=== PATIENT | male | born 1945 | race Hispanic/Latino ===

== ENCOUNTER 2017-10-16 08:54 | Day surgery (SDC) | payer MEDICARE ==
[2017-10-09 14:09] VITALS: BMI 28.9
[2017-10-16] MEDS ORDERED: Propofol 10 mg/ml Inj (20 ML) ONE ×2 (11:33→12:19)
[2017-10-16] MEDS ORDERED: Lidocaine 1% Inj (20ml) ONE (11:35)
[2017-10-16] MEDS ORDERED: Sodium Chloride 0.9% 1,000 ML IV SCH (12:45)
[2017-10-16 14:33] VITALS: BP 131/73; PULSE 65; RESP 14; TEMP 97; O2SAT 97
== END 2017-10-16 14:20 | disposition home or self-care (01) ==
LOC: ENDO 08:54
PROVIDERS: ATTEND Internal Medicine Gastroenterology
DX: K25.9 Gastric ulcer, unspecified as acute or chronic, without hemorrhage or perforation (principal); Z12.11 Encounter for screening for malignant neoplasm of colon; D12.3 Benign neoplasm of transverse colon; K31.9 Disease of stomach and duodenum, unspecified; K57.30 Diverticulosis of large intestine without perforation or abscess without bleeding; K29.50 Unspecified chronic gastritis without bleeding; B96.81 Helicobacter pylori [H. pylori] as the cause of diseases classified elsewhere; K64.8 Other hemorrhoids; Z86.010 Personal history of colon polyps
CPT/HCPCS: 43239; 45380; 45381; 88305; 88342; J2704; J7040 ×2

== ENCOUNTER 2018-02-05 07:57 | Day surgery (SDC) | payer MEDICARE ==
[2018-01-30 14:01] VITALS: BMI 28.8
[2018-02-05] MEDS ORDERED: Sodium Chloride 0.9% 1,000 ML IV SCH (09:15)
[2018-02-05] MEDS ORDERED: Propofol 10 mg/ml Inj (20 ML) ONE (09:54)
[2018-02-05 11:42] VITALS: BP 130/77; PULSE 58; RESP 16; TEMP 97.7; O2SAT 98
== END 2018-02-05 11:32 | disposition home or self-care (01) ==
LOC: ENDO 07:57
PROVIDERS: ATTEND Internal Medicine Gastroenterology
DX: K29.50 Unspecified chronic gastritis without bleeding (principal); K21.9 Gastro-esophageal reflux disease without esophagitis; K25.9 Gastric ulcer, unspecified as acute or chronic, without hemorrhage or perforation; I10 Essential (primary) hypertension; E78.00 Pure hypercholesterolemia, unspecified; E78.5 Hyperlipidemia, unspecified; Z86.010 Personal history of colon polyps; Z85.828 Personal history of other malignant neoplasm of skin
CPT/HCPCS: 43239; 88305; 88342; J2001; J2704; J7030; J7040

== ENCOUNTER 2018-04-27 16:47 | Observation (INO) | payer MEDICARE, OTHER ==
--- NOTE | 2018-04-27 17:39 | ED PDOC ---
Arrival/HPI - General Time Seen by Provider: 04/27/18 17:26 Historian: Patient - History of Present Illness Narrative History of Present Illness (Text): 04/27/18 17:36 72 year old male, whose past medical history includes hypertension and hyperlipidemia, who presents to the Emergency department complaining of a headache and near syncope x 2 days. Patient states this afternoon, he was watching tv and when he got up he felt like he was going to pass out. Patient describes headache as pressure like. Patient denies any fevers, chills, chest pain, shortness of breath, abdominal pain, nausea, vomiting, diarrhea, back pain, neck pain, or any other complaint. PMD: Dr. Villavicencio Time/Duration: < week (2 days) Symptom Onset: Gradual Symptom Course: Unchanged Activities at Onset: Light Context: Home Past Medical History - Provider Review Nursing Documentation Reviewed: Yes - Cardiac Hx Pacemaker: No - Neurological Hx Paralysis: No - Hematological/Oncological Hx Blood Transfusions: No Hx Blood Transfusion Reaction: No - Musculoskeletal/Rheumatological Hx Musculoskeletal Disorders: No - Psychiatric Hx Emotional Abuse: No Hx Physical Abuse: No Hx Substance Use: No - Anesthesia Hx Anesthesia Reactions: No Hx Malignant Hyperthermia: No - Suicidal Assessment Feels Threatened In Home Enviroment: No Family/Social History - Physician Review Nursing Documentation Reviewed: Yes Family/Social History: Unknown Family HX Hx Alcohol Use: Yes (ON OCCASION) Hx Substance Use: No Allergies/Home Meds Allergies/Adverse Reactions: Allergies No Known Allergies Allergy (Verified 01/30/18 14:01) DOESN'T REMEMBER Home Medications: Home Meds Medication Instructions Recorded Confirmed Atorvastatin [Lipitor] 10 mg PO DAILY 10/09/17 02/05/18 amLODIPine [Norvasc] 5 mg PO QAM 10/09/17 02/05/18 Cholecalciferol (Vitamin D3) 1,000 unit PO DAILY 02/05/18 02/05/18 [Vitamin D3] Ranitidine HCl [Zantac] 150 mg PO BID 02/05/18 02/05/18 Review of Systems - Physician Review All systems were reviewed & negative as marked: Yes - Review of Systems Constitutional: Normal Eyes: Normal ENT: Normal Respiratory: Normal. absent: SOB, Cough Cardiovascular: Normal. absent: Chest Pain Gastrointestinal: Normal. absent: Abdominal Pain Genitourinary Male: Normal. absent: Dysuria, Frequency, Hematuria Musculoskeletal: Normal. absent: Back Pain, Neck Pain Skin: Normal. absent: Rash Neurological: Headache, Dizziness, Other (near syncope) Endocrine: Normal Hemo/Lymphatic: Normal Psychiatric: Normal Physical Exam Vital Signs Reviewed: Yes Vital Signs Temp Pulse Resp BP Pulse Ox 04/27/18 17:34 97.9 F 79 18 150/79 100 Temperature: Afebrile Blood Pressure: Normal Pulse: Regular Respiratory Rate: Normal Appearance: Positive for: Well-Appearing, Non-Toxic, Comfortable Pain Distress: None Mental Status: Positive for: Alert and Oriented X 3 - Systems Exam Head: Present: Atraumatic, Normocephalic Pupils: Present: PERRL Extroacular Muscles: Present: EOMI Conjunctiva: Present: Normal Mouth: Present: Moist Mucous Membranes Neck: Present: Normal Range of Motion Respiratory/Chest: Present: Clear to Auscultation, Good Air Exchange. No: Respiratory Distress, Accessory Muscle Use Cardiovascular: Present: Regular Rate and Rhythm, Normal S1, S2. No: Murmurs Abdomen: No: Tenderness, Distention, Peritoneal Signs Back: Present: Normal Inspection Upper Extremity: Present: Normal Inspection. No: Cyanosis, Edema Lower Extremity: Present: Normal Inspection. No: Edema Neurological: Present: GCS=15, CN II-XII Intact, Speech Normal, Motor Func Grossly Intact, Normal Sensory Function, Normal Cerebellar Funct, Normal 2Pt Descrimination. No: Gait Normal (off-balance when he stands due to lightheadedness) Skin: Present: Warm, Dry, Normal Color. No: Rashes Psychiatric: Present: Alert, Oriented x 3, Normal Insight, Normal Concentration Medical Decision Making ED Course and Treatment: 04/27/18 17:39 Impression: 72 year old male presents to the emergency department complaining of headache and near syncope due to hypertensive urgency vs cardiac. Plan: -- CT Head -- EKG -- Cardiac ISO -- Labs -- Chest X-ray -- Tylenol -- Reglan -- UA -- Reassess and disposition Progress Notes: 04/27/18 18:03 EKG reviewed, shows NSR at 66 bpm. Left axis deviation. Right bundle branch block. 04/27/18 19:[address] Head pending. Signed out to Dr. Allison to f/u CT, reevaluation and disposition. NIHSS Scale ([place]) Time Performed: 17:26 - How Severe is the [place] Baseline Level of Consciousness: 0=Alert LOC to Questions: 0=Both comments correct LOC to commands: 0=Obeys both correctly Best Gaze: 0=Normal Visual: 0=No visual loss Facial: 0=Normal Motor Arm - Left: 0=No drift Motor Arm - Right: 0=No drift Motor Leg - Left: 0=No drift Motor Leg - Right: 0=No drift Limb Ataxia: 0=Absent Sensory: 0=Normal Best Language: 0=No aphasia Dysarthia: 0=Normal articulation Extinction & Inattention (Neglect): 0=Normal, no object Score: 0 Risk Level: No Stroke Risk rTPA Inclusion/Exclusion - Refusal of Treatment Patient Refused Treatment: No - Inclusion Criteria for Altepase Patient is 18 years or Older: Yes The Clinical Diagnosis of Ischemic Stroke That is Causing a Potentially Disabling Neurological Deficit: No Time of Onset is Well Established to be Less Than 270 Minute Before Treatment Would Begin: No Risk/Benefit Discussed With Patient/Family Member Present: No - Scribe Statement The provider has reviewed the documentation as recorded by the Scribe Kami Malave All medical record entries made by the Scribe were at my direction and personally dictated by me. I have reviewed the chart and agree that the record accurately reflects my personal performance of the history, physical exam, medical decision making, and the department course for this patient. I have also personally directed, reviewed, and agree with the discharge instructions and disposition. Disposition/Present on Arrival - Present on Arrival Any Indicators Present on Arrival: No - Disposition Have Diagnosis and Disposition been Completed?: No Diagnosis: Near syncope, Headache Disposition Time: 19:55 Condition: FAIR
[2018-04-27 19:25] LABS: BASO # 0.01 K/mm3 (0.0-2.0); BASO % 0.1 % (0.0-3.0); EOS # 0.1 (0.0-0.7); EOS % 1.6 % (1.5-5.0); GRAN # 6.19 (1.4-6.5); GRAN % 78.5 % (50.0-68.0); HEMOGLOBIN 14.7 g/dL (14.0-18.0); LYMPH % 12.7 % (22.0-35.0); MEAN CELL VOLUME 86.5 fl (80.0-105.0); MEAN CORPUSCULAR HEMOGLOBIN 29.1 pg (25.0-35.0); MEAN CORPUSCULAR HGB CONC 33.6 g/dl (31.0-37.0); MEAN PLATELET VOLUME 9.5 fl (7.0-11.0); MONO # 0.6 (0.1-0.6); MONO % 7.1 % (1.0-6.0); RBC 5.05 10^6/uL (3.5-6.1); RED CELL DISTRIBUTION WIDTH 13.3 % (11.5-14.5); WHITE BLOOD COUNT 7.9 10^3/ul (4.5-11.0)
[2018-04-27 19:43] LABS: PH,URINE 6.5 (4.7-8.0); URINE BILIRUBIN NEGATIVE (NEGATIVE); URINE BLOOD NEGATIVE (NEGATIVE); URINE GLUCOSE (UA) NEGATIVE (NEGATIVE); URINE LEUKOCYTE ESTERASE TRACE Leu/uL (NEGATIVE); URINE PROTEIN NEGATIVE mg/dL (<30 mg/dL)
[2018-04-27 19:48] LABS: URINE APPEARANCE CLEAR (CLEAR); URINE COLOR YELLOW (YELLOW)
[2018-04-27 20:01] LABS: URINE BACTERIA MOD (NEG); URINE EPITHELIAL CELLS 0 - 2 /hpf (0-5); URINE RBC 0 - 2 /hpf (0-2)
--- NOTE | 2018-04-27 20:22 | ED PDOC ---
Physical Exam Vital Signs Reviewed: Yes Vital Signs Temp Pulse Resp BP Pulse Ox 04/27/18 18:59 84 18 148/87 99 04/27/18 17:34 97.9 F 79 18 150/79 100 Temperature: Afebrile Blood Pressure: Normal Pulse: Regular Respiratory Rate: Normal Appearance: Positive for: Well-Appearing, Non-Toxic, Comfortable Pain Distress: None Mental Status: Positive for: Alert and Oriented X 3 - Systems Exam Head: Present: Atraumatic, Normocephalic Pupils: Present: PERRL Extroacular Muscles: Present: EOMI Conjunctiva: Present: Normal Mouth: Present: Moist Mucous Membranes Neck: Present: Normal Range of Motion Respiratory/Chest: Present: Clear to Auscultation, Good Air Exchange. No: Respiratory Distress, Accessory Muscle Use Cardiovascular: Present: Regular Rate and Rhythm, Normal S1, S2. No: Murmurs Abdomen: No: Tenderness, Distention, Peritoneal Signs Back: Present: Normal Inspection Upper Extremity: Present: Normal Inspection. No: Cyanosis, Edema Lower Extremity: Present: Normal Inspection. No: Edema Neurological: Present: GCS=15, CN II-XII Intact, Speech Normal Skin: Present: Warm, Dry, Normal Color. No: Rashes Psychiatric: Present: Alert, Oriented x 3, Normal Insight, Normal Concentration Medical Decision Making ED Course and Treatment: 04/27/18 20:22 Pt signed out to me by Dr. Garcia to f/u CT, reevaluation and disposition.Patient presented with c/o headache,dizziness,near syncopal events. EXAM: CT Head w/o Contrast SINGED ON: 04/27/18 10:10 BY: Markell Osullivan M.D. IMPRESSION: No acute intracanal abnormality 04/27/18 22:[address] Keating who is aware and agrees with the plan. Accepts patient to his service. Patient to be admitted to Telemetry for syncope. Re quests Dr. Pat and Dr. Gallardo for consult. - Lab Interpretations Lab Results: 04/27/18 19:11 Lab Results 04/27/18 19:11: WBC 7.9, RBC 5.05, Hgb 14.7, Hct 43.7, MCV 86.5, MCH 29.1, MCHC 33.6, RDW 13.3, Plt Count 201, MPV 9.5, Gran % 78.5 H, Lymph % (Auto) 12.7 L, R[place] % (Auto) 7.1 H, Eos % (Auto) 1.6, Baso % (Auto) 0.1, Gran # 6.19, Lymph # (Auto) 1.0 L, [place] # (Auto) 0.6, Eos # (Auto) 0.1, Baso # (Auto) 0.01 04/27/18 19:02: Urine Color Yellow, Urine Appearance Clear, Urine pH 6.5, Ur Specific [place] 1.020, Urine Protein Negative, Urine Glucose (UA) Negative, Urine Ketones Trace H, Urine Blood Negative, Urine Nitrate Negative, Urine Bili yi Negative, Urine Urobilinogen 1.0 H, Ur Leukocyte Esterase Trace H, Urine RBC 0 - 2, Urine WBC 2 - 5, Ur Epithelial Cells 0 - 2, Urine Bacteria Mod - RAD Interpretation Radiology Orders: 04/27/18 17:48 CHEST PORTABLE [RAD] Stat 04/27/18 17:49 HEAD W/O CONTRAST [CT] Stat - Medication Orders Current Medication Orders: Discontinued Medications Acetaminophen (Tylenol 325mg Tab) 650 mg PO STAT STA Stop: 04/27/18 17:49 Last Admin: 04/27/18 18:55 Dose: 650 mg Metoclopramide HCl (Reglan) 10 mg IVP STAT STA Stop: 04/27/18 17:49 Last Admin: 04/27/18 18:55 Dose: 10 mg IVP Administration Document 04/27/18 18:55 HI (Rec: 04/27/18 18:55 AR [id number]) Charges for Administration # of IVP Administrations 1 - Scribe Statement The provider has reviewed the documentation as recorded by the Scribe Kami Malave All medical record entries made by the Scribe were at my direction and personally dictated by me. I have reviewed the chart and agree that the record accurately reflects my personal performance of the history, physical exam, medical decision making, and the department course for this patient. I have also personally directed, reviewed, and agree with the discharge instructions and disposition. Disposition/Present on Arrival - Present on Arrival Any Indicators Present on Arrival: No History of DVT/PE: No History of Uncontrolled Diabetes: No Urinary Catheter: No History of Decub. Ulcer: No History Surgical Site Infection Following: None - Disposition Have Diagnosis and Disposition been Completed?: Yes Diagnosis: Near syncope, Headache Disposition Time: 22:34 Patient Problems: Current Active Problems Problem Status Onset Headache Acute Near syncope Acute Condition: FAIR Forms: [employer] ([place] Citizen)
[2018-04-27 20:24] LABS: BLOOD UREA NITROGEN 17 mg/dL (7-21); GFR NON-AFRICAN AMERICAN > 60
[2018-04-27 20:25] LABS: CALCIUM 9.8 mg/dL (8.4-10.5)
[2018-04-27 20:28] LABS: ALB/GLOB RATIO 1.4 (1.1-1.8); ALBUMIN 4.2 g/dL (3.0-4.8); ALT/SGPT 24 U/L (7-56); AST/SGOT 29 U/L (17-59)
[2018-04-27 20:34] LABS: TROPONIN I < 0.01 ng/mL
[2018-04-28 00:23] VITALS: BMI 28.1
--- NOTE | 2018-04-28 06:32 | CP.PCM.HP ---
<WestonKandi - Last Filed: 04/28/18 08:48> History of Present Illness - History of Present Illness History of Present Illness: H&P for Danny Kelley PGY3 This is 72yo female with past medical history of HTN and HLD who came to ED for dizziness and headache x 2 days. Patient reports he has been feeling a lot of pressure behind his eyes and his forehead for 2 days. He states it made him feel dizzy and hard to walk. Patient states it felt like he was about to pass out. He has never had this before. He denies any vision changes, room spinning, changes in medications, recent travel or sick contacts at home. Patient states it just came on suddenly and the pain in his head was located on his forehead and eye and did not radiate. The last time he got his eyes checked was >2yrs ago. Patient denies any chest pain, pain, shortness of breath, nausea/ vomiting/diarrhea, fever/chills, numbness/tingling, slurred speech, dysuria or hematuria. Past medical history: HTN, HLD Past surgical history: Lumbar back surgery, inguinal hernia repair Home meds: Reviewed as per MAR Allergies: NKDA Social history: Quit smoking >40yrs ago, occasional EtOH use and denies drug use. Retired and lives with family and is independent in all ADLs Family history: Dad- from pancreatic Ca, Mom- from uncontrolled DM, HTN PMD: Dr. Villavicencio Present on Admission - Present on Admission Any Indicators Present on Admission: No Review of Systems - Review of Systems All systems: reviewed and no additional remarkable complaints except Review of Systems: 12 point ROS reviewed as per HPI and is otherwise negative Past Patient History - Infectious Disease Hx of Infectious Diseases: None - Past Social History Smoking Status: Never Smoked - CARDIAC Hx Hypercholesterolemia: Yes Hx Hypertension: Yes Hx Pacemaker: No - PULMONARY Hx Respiratory Disorders: No - NEUROLOGICAL Hx Paralysis: No - HEMATOLOGICAL/ONCOLOGICAL Hx Blood Transfusions: No Hx Blood Transfusion Reaction: No - INTEGUMENTARY Other/Comment: psoriasis (plantar) both feets - MUSCULOSKELETAL/RHEUMATOLOGICAL Hx Falls: No - GASTROINTESTINAL Hx Ulcer: Yes - PSYCHIATRIC Hx Emotional Abuse: No Hx Physical Abuse: No - SURGICAL HISTORY Hx Surgeries: Yes Other/Comment: hernia reapir, back surgery - ANESTHESIA Hx Anesthesia Reactions: No Hx Malignant Hyperthermia: No Meds Allergies/Adverse Reactions: Allergies Allergy/AdvReac Type Severity Reaction Status Date / Time No Known Allergies Allergy Verified 01/30/18 14:01 Physical Exam - Constitutional Appears: No Acute Distress - Head Exam Head Exam: ATRAUMATIC, NORMAL INSPECTION, NORMOCEPHALIC - Eye Exam Eye Exam: Normal appearance, PERRL Pupil Exam: NORMAL ACCOMODATION - ENT Exam ENT Exam: Mucous Membranes Moist - Neck Exam Neck exam: Positive for: Full Rom, Normal Inspection. Negative for: Lymphadenopathy, Tenderness - Respiratory Exam Respiratory Exam: Clear to Auscultation Bilateral, NORMAL BREATHING PATTERN. absent: Rales, Rhonchi, Wheezes, Respiratory Distress - Cardiovascular Exam Cardiovascular Exam: REGULAR RHYTHM, +S1, +S2. absent: Gallop, Rubs, Systolic Murmur - GI/Abdominal Exam GI & Abdominal Exam: Normal Bowel Sounds, Soft. absent: Mass, Rebound, Rigid, Tenderness - Extremities Exam Extremities exam: Positive for: full ROM, normal inspection. Negative for: calf tenderness, pedal edema - Neurological Exam Neurological exam: Alert, CN II-XII Intact, Oriented x3 - Psychiatric Exam Psychiatric exam: Normal Affect, Normal Mood - Skin Skin Exam: Dry, Normal Color, Warm Results - Vital Signs Recent Vital Signs: Last Vital Signs Temp 97.5 F L 04/28/18 06:00 Pulse 66 04/28/18 06:00 Resp 20 04/28/18 06:00 BP 135/86 04/28/18 06:00 Pulse Ox 95 04/28/18 06:00 - Labs Result Diagrams: 04/27/18 19:11 04/27/18 19:11 Labs: Laboratory Results - last 24 hr 04/27/18 04/27/18 04/27/18 19:02 19:11 19:11 WBC 7.9 RBC 5.05 Hgb 14.7 Hct 43.7 MCV 86.5 MCH 29.1 MCHC 33.6 RDW 13.3 Plt Count 201 MPV 9.5 Gran % 78.5 H Lymph % (Auto) 12.7 L [place] % (Auto) 7.1 H Eos % (Auto) 1.6 Baso % (Auto) 0.1 Gran # 6.19 Lymph # (Auto) 1.0 L [place] # (Auto) 0.6 Eos # (Auto) 0.1 Baso # (Auto) 0.01 Sodium 139 Potassium 4.7 Chloride 101 Carbon Dioxide 30 Anion Gap 13 BUN 17 Creatinine 1.1 Est GFR ( Amer) > 60 Est GFR (Non-Af Amer) > 60 Random Glucose 114 H Calcium 9.8 Magnesium 2.3 H Total Bilirubin 0.4 AST 29 ALT 24 Alkaline Phosphatase 53 Lactate Dehydrogenase 418 Total Creatine Kinase 215 Troponin I < 0.01 Total Protein 7.2 Albumin 4.2 Globulin 3.0 Albumin/Globulin Ratio 1.4 Urine Color Yellow Urine Appearance Clear Urine pH 6.5 Ur Specific [place] 1.020 Urine Protein Negative Urine Glucose (UA) Negative Urine Ketones Trace H Urine Blood Negative Urine Nitrate Negative Urine Bilirubin Negative Urine Urobilinogen 1.0 H Ur Leukocyte Esterase Trace H Urine RBC 0 - 2 Urine WBC 2 - 5 Ur Epithelial Cells 0 - 2 Urine Bacteria Mod Assessment & Plan - Assessment and Plan (Free Text) Assessment: 1. Syncope 2. HTN 3. HLD Plan: Labs and imaging reviewed. Head CT negative for acute pathology. Neuro and Cardio consulted. Echo and carotid doppler ordered. Will continue home medications of Norvasc and Lipitor. Will check orthostatic vital signs. Tylenol prn pain. Case seen, discussed and reviewed with Dr. Zuri Ontiveros PGY3 - Date & Time Date: 04/28/18 Time: 08:04 <Louis Keating S - Last Filed: 04/28/18 19:41> Results - Vital Signs Recent Vital Signs: Last Vital Signs Temp 98.4 F 04/28/18 12:00 Pulse 71 04/28/18 14:00 Resp 20 04/28/18 12:00 BP 165/95 H 04/28/18 12:00 Pulse Ox 99 04/28/18 12:00 - Labs Result Diagrams: 04/27/18 19:11 04/27/18 19:11 Labs: Laboratory Results - last 24 hr 04/27/18 04/27/18 19:02 19:11 Sodium 139 Potassium 4.7 Chloride 101 Carbon Dioxide 30 Anion Gap 13 BUN 17 Creatinine 1.1 Est GFR ( Amer) > 60 Est GFR (Non-Af Amer) > 60 Random Glucose 114 H Calcium 9.8 Magnesium 2.3 H Total Bilirubin 0.4 AST 29 ALT 24 Alkaline Phosphatase 53 Lactate Dehydrogenase 418 Total Creatine Kinase 215 Troponin I < 0.01 Total Protein 7.2 Albumin 4.2 Globulin 3.0 Albumin/Globulin Ratio 1.4 Urine Color Yellow Urine Appearance Clear Urine pH 6.5 Ur Specific [place] 1.020 Urine Protein Negative Urine Glucose (UA) Negative Urine Ketones Trace H Urine Blood Negative Urine Nitrate Negative Urine Bilirubin Negative Urine Urobilinogen 1.0 H Ur Leukocyte Esterase Trace H Urine RBC 0 - 2 Urine WBC 2 - 5 Ur Epithelial Cells 0 - 2 Urine Bacteria Mod Assessment & Plan - Assessment and Plan (Free Text) Plan: Pt seen and examined by me. This is a late entry. I have reviewed the note by the medical representative. The case was discussed and reviewed with the resident. I reviewed the medications and labs. Pt had syncope. THe work up is negative so far. CT is negative. Will get Cardio and Neuro evaluation. BP is controlled. No pain.
--- NOTE | 2018-04-28 09:02 | CON ---
DATE: 04/28/2018 REQUESTING PHYSICIAN: Louis Keating MD. REASON FOR CONSULTATION: Near syncope. HISTORY: This is a 72-year-old man with a history of hypertension and hyperlipidemia, who presents to the emergency room yesterday with severe headache and near syncope. He states he was finishing a meal when he developed sudden onset of intense fullness in his head. He denied any other neurologic symptoms. He denied any visual difficulties. The pain became intense and he felt as though he was going to lose consciousness. He was brought to the emergency room and evaluation initiated. Initial CT scan of the head was unremarkable. His blood pressure was somewhat elevated upon arrival, though it is now improved. He has had no further headaches and is lying comfortably in bed on telemetry. PAST MEDICAL HISTORY: His past history is notable for the problems mentioned above. He has undergone a prior hernia repair as well as back surgery many years ago. MEDICATIONS AT HOME: Include Zantac, Norvasc and Lipitor. ALLERGIES: HE HAS NO REPORTED ALLERGIES. SOCIAL HISTORY: Does not smoke or drink. He is retired. He states he is fairly active. FAMILY HISTORY: Mother from heart disease in her late 80s. His father from age-related illness. There is no family history of premature heart disease. REVIEW OF SYSTEMS: The 10-point review of systems is otherwise unremarkable. He has had no prior episodes of syncope. PHYSICAL EXAMINATION: GENERAL: He is a fit-appearing middle-aged man. VITAL SIGNS: His blood pressure is 136/86 with pulse of 66, respirations are 14. He is afebrile. HEENT: Head normocephalic, atraumatic. NECK: Supple. No JVD noted. CHEST: Clear to auscultation and percussion. HEART: PMI in normal position. No pathological murmur or gallops noted. ABDOMEN: Soft, nontender with normoactive bowel sounds. EXTREMITIES: Reveal no clubbing, cyanosis or edema. SKIN: Warm and dry. PSYCHIATRIC: Normal mood and affect. NEUROLOGIC: Alert and oriented x3. No gross motor or sensory deficits noted. DIAGNOSTIC DATA: Troponin is nondetectable, potassium 4.7, BUN and creatinine 17 and 1.1. White count 7.9, hemoglobin and hematocrit 14.7 and 43.7 with a platelet count 201,000. Electrocardiogram reveals sinus rhythm with a right bundle-branch block pattern. Chest x-ray reveals a normal cardiac silhouette with clear lung pringle. CT of the head as mentioned that was reportedly unremarkable. IMPRESSION: 1. Near syncope, possibly due to vasovagal episode secondary to intense headache. 2. Headache, etiology uncertain. 3. Hypertension, currently controlled. 4. History of hyperlipidemia. RECOMMENDATIONS: Telemetry monitoring should be continued for 24 hours and Neurology evaluation is pending. An echocardiogram will be ordered to assess his left ventricular size and function. Given his findings, I suspect that his near-syncopal event is not benefits representative of any significant cardiac pathology. Thank you for this consultation and I will be happy to follow along through his hospital course as needed. Fede Thompson MD
[2018-04-28] MEDS: Cholecalciferol 1,000 INTLU TAB PO SCH (09:14)
--- NOTE | 2018-04-28 09:38 | CT ---
Date of service: 04/27/2018 PROCEDURE: CT HEAD WITHOUT CONTRAST. HISTORY: headache COMPARISON: None available. TECHNIQUE: Axial computed tomography images were obtained through the head/brain without intravenous contrast. Radiation dose: Total exam DLP = 1610 mGy-cm. This CT exam was performed using one or more of the following dose reduction techniques: Automated exposure control, adjustment of the mA and/or kV according to patient size, and/or use of iterative reconstruction technique. FINDINGS: HEMORRHAGE: No intracranial hemorrhage. BRAIN: No mass effect or edema. No atrophy or chronic microvascular ischemic changes. VENTRICLES: Unremarkable. No hydrocephalus. CALVARIUM: Unremarkable. PARANASAL SINUSES: Unremarkable as visualized. No significant inflammatory changes. MASTOID AIR CELLS: Unremarkable as visualized. No inflammatory changes. OTHER FINDINGS: The report concurs with the preliminary report IMPRESSION: No acute intracranial findings
--- NOTE | 2018-04-28 10:24 | RAD ---
Date of service: 04/27/2018 HISTORY: near syncope COMPARISON: No prior. FINDINGS: LUNGS: No active pulmonary disease. PLEURA: No significant pleural effusion identified, no pneumothorax apparent. CARDIOVASCULAR: Normal. OSSEOUS STRUCTURES: No significant abnormalities. VISUALIZED UPPER ABDOMEN: Normal. OTHER FINDINGS: None. IMPRESSION: No active disease.
--- NOTE | 2018-04-28 12:57 | CARD ---
APPROVED REPORT Date of service: 04/27/2018 EKG Measurement Heart [id number] <Conclusion> Normal sinus rhythm Left axis deviation Right bundle branch block Abnormal ECG
[2018-04-29 03:13] VITALS: RESP 20
[2018-04-29 07:57] VITALS: O2SAT 97
--- NOTE | 2018-04-29 08:34 | CP.PCM.PN ---
Subjective - Date & Time of Evaluation Date of Evaluation: 04/29/18 Time of Evaluation: 07:00 - Subjective Subjective: Stable on 2R. No CP,SOB, Syncope V/S noted. RSR PE: Lungs: clear Cor.: S1S2 Abd.: soft Ext.: no edema Neuro.: alert I/O= 860/650 ECG10/6: RSR, RBBB, LAD. No change Objective - Vital Signs/Intake and Output Vital Signs (last 24 hours): Temp Pulse Resp BP Pulse Ox 98 F 58 L 20 118/78 97 04/29/18 06:00 04/29/18 06:00 04/29/18 06:00 04/29/18 06:00 04/29/18 06:00 Intake and Output: 04/29/18 04/29/18 06:59 18:59 Intake Total 860 Output Total 650 Balance 210 - Medications Medications: Current Medications Acetaminophen (Tylenol 325mg Tab) 650 mg PO Q6H PRN PRN Reason: Pain, Mild (1-3) Amlodipine Besylate (Norvasc) 5 mg PO QAM [facility] Last Admin: 04/28/18 09:13 Dose: 5 mg Atorvastatin Calcium (Lipitor) 10 mg PO DAILY [facility] Last Admin: 04/28/18 09:14 Dose: 10 mg Cholecalciferol (Vitamin D) 1,000 intlu PO DAILY [facility] Last Admin: 04/28/18 09:14 Dose: 1,000 intlu Ondansetron HCl (Zofran Inj) 4 mg IVP Q6H PRN PRN Reason: Nausea/Vomiting - Labs Labs: 04/27/18 19:11 04/27/18 19:11 Assessment and Plan - Assessment and Plan (Free Text) Assessment: Severe CORTES with near syncope HBP HLD RBBB/LAD Plan: Check echo Check postural V/S Neuro. eval. OOB
--- NOTE | 2018-04-29 09:29 | US ---
PROCEDURE: Bilateral carotid artery duplex ultrasound HISTORY: Carotid stenosis syncope PHYSICIAN(S): Diego Larson MD. TECHNIQUE: Duplex sonography and color-flow Doppler were used to evaluate the carotid bifurcations and limited segments of the vertebral arteries bilaterally. FINDINGS: There is mild smooth heterogeneous plaque noted at the carotid bifurcations bilaterally. The peak systolic velocity in the proximal right internal carotid artery is 84 cm/sec. This corresponds to a 20 to 39% proximal right ICA stenosis. Normal systolic velocities are noted in the proximal right external carotid artery. There is antegrade flow in the right vertebral artery. The peak systolic velocity in the proximal left internal carotid artery is 82 cm/sec. This corresponds to a 20 to 39% proximal left ICA stenosis. Normal systolic velocities are noted in the proximal left external carotid artery. There is antegrade flow in the left vertebral artery. IMPRESSION: 1. Bilateral 20-39% proximal ICA stenoses. 2. Antegrade flow in both vertebral arteries.
[2018-04-29] MEDS: Cholecalciferol 1,000 INTLU TAB PO SCH (09:46)
--- NOTE | 2018-04-29 11:54 | CP.PCM.DIS ---
<Bonnie Webster - Last Filed: 04/30/18 12:36> Provider - Provider Date of Admission: 04/27/18 22:36 Attending physician: Louis Keating MD Primary care physician: Dar Villavicencio MD Time Spent in preparation of Discharge (in minutes): 45 Hospital Course - Lab Results Lab Results: Micro Results 04/27/18 19:07 Urine,Clean Catch Urine Culture - Final No Growth (<1,000 CFU/ML) Most Recent Lab Values WBC 7.9 10^3/ul (4.5-11.0) 04/27/18 19:11 RBC 5.05 10^6/uL (3.5-6.1) 04/27/18 19:11 Hgb 14.7 g/dL (14.0-18.0) 04/27/18 19:11 Hct 43.7 % (42.0-52.0) 04/27/18 19:11 MCV 86.5 fl (80.0-105.0) 04/27/18 19:11 MCH 29.1 pg (25.0-35.0) 04/27/18 19:11 MCHC 33.6 g/dl (31.0-37.0) 04/27/18 19:11 RDW 13.3 % (11.5-14.5) 04/27/18 19:11 Plt Count 201 10^3/uL (120.0-450.0) 04/27/18 19:11 MPV 9.5 fl (7.0-11.0) 04/27/18 19:11 Gran % 78.5 % (50.0-68.0) H 04/27/18 19:11 Lymph % (Auto) 12.7 % (22.0-35.0) L 04/27/18 19:11 Geary % (Auto) 7.1 % (1.0-6.0) H 04/27/18 19:11 Eos % (Auto) 1.6 % (1.5-5.0) 04/27/18 19:11 Baso % (Auto) 0.1 % (0.0-3.0) 04/27/18 19:11 Gran # 6.19 (1.4-6.5) 04/27/18 19:11 Lymph # (Auto) 1.0 (1.2-3.4) L 04/27/18 19:11 Geary # (Auto) 0.6 (0.1-0.6) 04/27/18 19:11 Eos # (Auto) 0.1 (0.0-0.7) 04/27/18 19:11 Baso # (Auto) 0.01 K/mm3 (0.0-2.0) 04/27/18 19:11 Sodium 139 mmol/L (132-148) 04/27/18 19:11 Potassium 4.7 mmol/L (3.6-5.0) 04/27/18 19:11 Chloride 101 mmol/L (98-107) 04/27/18 19:11 Carbon Dioxide 30 mmol/L (21-33) 04/27/18 19:11 Anion Gap 13 (10-20) 04/27/18 19:11 BUN 17 mg/dL (7-21) 04/27/18 19:11 Creatinine 1.1 mg/dl (0.8-1.5) 04/27/18 19:11 Est GFR ( Amer) > 60 04/27/18 19:11 Est GFR (Non-Af Amer) > 60 04/27/18 19:11 Random Glucose 114 mg/dL (70-110) H 04/27/18 19:11 Calcium 9.8 mg/dL (8.4-10.5) 04/27/18 19:11 Magnesium 2.3 mg/dL (1.7-2.2) H 04/27/18 19:11 Total Bilirubin 0.4 mg/dL (0.2-1.3) 04/27/18 19:11 AST 29 U/L (17-59) 04/27/18 19:11 ALT 24 U/L (7-56) 04/27/18 19:11 Alkaline Phosphatase 53 U/L (38-126) 04/27/18 19:11 Lactate Dehydrogenase 418 U/L (333-699) 04/27/18 19:11 Total Creatine Kinase 215 U/L (35-230) 04/27/18 19:11 Troponin I < 0.01 ng/mL 04/27/18 19:11 Total Protein 7.2 g/dL (5.8-8.3) 04/27/18 19:11 Albumin 4.2 g/dL (3.0-4.8) 04/27/18 19:11 Globulin 3.0 gm/dL 04/27/18 19:11 Albumin/Globulin Ratio 1.4 (1.1-1.8) 04/27/18 19:11 Urine Color Yellow (YELLOW) 04/27/18 19: Urine Appearance Clear (CLEAR) 04/27/18 19: Urine pH 6.5 (4.7-8.0) 04/27/18 19: Ur Specific [place] 1.020 (1.005-1.035) 04/27/18 19: Urine Protein Negative mg/dL (<30 mg/dL) 04/27/18 19: Urine Glucose (UA) Negative mg/dL (NEGATIVE) 04/27/18 19: Urine Ketones Trace mg/dL (NEGATIVE) H 04/27/18 19:02 Urine Blood Negative (NEGATIVE) 04/27/18 19: Urine Nitrate Negative (NEGATIVE) 04/27/18 19: Urine Bilirubin Negative (NEGATIVE) 04/27/18 19: Urine Urobilinogen 1.0 E.U./dL (<1 E.U./dL) H 04/27/18 19:02 Ur Leukocyte Esterase Trace John/uL (NEGATIVE) H 04/27/18 19:02 Urine RBC 0 - 2 /hpf (0-2) 04/27/18 19:02 Urine WBC 2 - 5 /hpf (0-6) 04/27/18 19:02 Ur Epithelial Cells 0 - 2 /hpf (0-5) 04/27/18 19:02 Urine Bacteria Mod (NEG) 04/27/18 19:02 - Hospital Course Hospital Course: 72 yo male with PMH of HTN and HLD who came to ED for dizziness and headache for 2 days. Patient reports he has been feeling a lot of pressure behind his eyes and his forehead for 2 days and felt dizzy most likely tension headache with vasovagal episode due to decrease water intake. Patient states that pressure behind his head has improved. Head CT was negative. EKG was normal sinus rhythm, and RBBB. Cardiology was consulted. Echo was done. Carotid and vertebral was bilateral 20-39% proximal ICA stenoses. Neurology was also consulted, recommended medrol dose pack for the headache and increase fluid intake. Patient states that he feels better and is agreeable to discharge home. He was instructed to drink more fluids. Discharge Exam - Head Exam Head Exam: ATRAUMATIC, NORMAL INSPECTION, NORMOCEPHALIC - Eye Exam Eye Exam: EOMI, Normal appearance - ENT Exam ENT Exam: Mucous Membranes Moist - Respiratory Exam Respiratory Exam: Clear to PA & Lateral, NORMAL BREATHING PATTERN, UNREMARKABLE. absent: Decreased Breath Sounds, Rales, Rhonchi, Wheezes, Respiratory Distress - Cardiovascular Exam Cardiovascular Exam: REGULAR RHYTHM, +S1, +S2. absent: Bradycardia, Tachycardia, Diastolic murmur, Systolic Murmur - GI/Abdominal Exam GI & Abdominal Exam: Normal Bowel Sounds, Unremarkable. absent: Distended, Firm, Guarding, Soft, Tenderness - Extremities Exam Extremities exam: normal inspection - Neurological Exam Neurological exam: Alert, Oriented x3 - Skin Skin Exam: Dry, Intact, Normal Color, Warm Discharge Plan - Discharge Medications Prescriptions: Methylprednisolone [Medrol Dose Pack (21 tabs)] 4 mg PO ASDIR #21 mg - Follow Up Plan Condition: FAIR Disposition: HOME/ ROUTINE Instructions: Syncope (Fainting) (DC), Near Fainting (DC) Additional Instructions: Please follow up with Dr. Villavicencio in 3-5 days. Please follow up with Dr. Gallardo in 1-2 weeks If symptoms return or worsen, please call 911 or visit your nearest emergency medical facility. Referrals: Dar Villavicencio MD [Primary Care Provider] - Silas Gallardo MD [Staff Provider] - <Louis Keating - Last Filed: 04/30/18 15:59> Provider - Provider Date of Admission: 04/27/18 22:36 Attending physician: Louis Keating MD Primary care physician: Dar Villavicencio MD Hospital Course - Lab Results Lab Results: Micro Results 04/27/18 19:07 Urine,Clean Catch Urine Culture - Final No Growth (<1,000 CFU/ML) Most Recent Lab Values WBC 7.9 10^3/ul (4.5-11.0) 04/27/18 19:11 RBC 5.05 10^6/uL (3.5-6.1) 04/27/18 19:11 Hgb 14.7 g/dL (14.0-18.0) 04/27/18 19:11 Hct 43.7 % (42.0-52.0) 04/27/18 19:11 MCV 86.5 fl (80.0-105.0) 04/27/18 19:11 MCH 29.1 pg (25.0-35.0) 04/27/18 19:11 MCHC 33.6 g/dl (31.0-37.0) 04/27/18 19:11 RDW 13.3 % (11.5-14.5) 04/27/18 19:11 Plt Count 201 10^3/uL (120.0-450.0) 04/27/18 19:11 MPV 9.5 fl (7.0-11.0) 04/27/18 19:11 Gran % 78.5 % (50.0-68.0) H 04/27/18 19:11 Lymph % (Auto) 12.7 % (22.0-35.0) L 04/27/18 19:11 Geary % (Auto) 7.1 % (1.0-6.0) H 04/27/18 19:11 Eos % (Auto) 1.6 % (1.5-5.0) 04/27/18 19:11 Baso % (Auto) 0.1 % (0.0-3.0) 04/27/18 19:11 Gran # 6.19 (1.4-6.5) 04/27/18 19:11 Lymph # (Auto) 1.0 (1.2-3.4) L 04/27/18 19:11 Geary # (Auto) 0.6 (0.1-0.6) 04/27/18 19:11 Eos # (Auto) 0.1 (0.0-0.7) 04/27/18 19:11 Baso # (Auto) 0.01 K/mm3 (0.0-2.0) 04/27/18 19:11 Sodium 139 mmol/L (132-148) 04/27/18 19:11 Potassium 4.7 mmol/L (3.6-5.0) 04/27/18 19:11 Chloride 101 mmol/L (98-107) 04/27/18 19:11 Carbon Dioxide 30 mmol/L (21-33) 04/27/18 19:11 Anion Gap 13 (10-20) 04/27/18 19:11 BUN 17 mg/dL (7-21) 04/27/18 19:11 Creatinine 1.1 mg/dl (0.8-1.5) 04/27/18 19:11 Est GFR ( Amer) > 60 04/27/18 19:11 Est GFR (Non-Af Amer) > 60 04/27/18 19:11 Random Glucose 114 mg/dL (70-110) H 04/27/18 19:11 Calcium 9.8 mg/dL (8.4-10.5) 04/27/18 19:11 Magnesium 2.3 mg/dL (1.7-2.2) H 04/27/18 19:11 Total Bilirubin 0.4 mg/dL (0.2-1.3) 04/27/18 19:11 AST 29 U/L (17-59) 04/27/18 19:11 ALT 24 U/L (7-56) 04/27/18 19:11 Alkaline Phosphatase 53 U/L (38-126) 04/27/18 19:11 Lactate Dehydrogenase 418 U/L (333-699) 04/27/18 19:11 Total Creatine Kinase 215 U/L (35-230) 04/27/18 19:11 Troponin I < 0.01 ng/mL 04/27/18 19:11 Total Protein 7.2 g/dL (5.8-8.3) 04/27/18 19:11 Albumin 4.2 g/dL (3.0-4.8) 04/27/18 19:11 Globulin 3.0 gm/dL 04/27/18 19:11 Albumin/Globulin Ratio 1.4 (1.1-1.8) 04/27/18 19:11 Urine Color Yellow (YELLOW) 04/27/18 19:02 Urine Appearance Clear (CLEAR) 04/27/18 19: Urine pH 6.5 (4.7-8.0) 04/27/18 19:02 Ur Specific [place] 1.020 (1.005-1.035) 04/27/18 19:02 Urine Protein Negative mg/dL (<30 mg/dL) 04/27/18 19: Urine Glucose (UA) Negative mg/dL (NEGATIVE) 04/27/18 19:02 Urine Ketones Trace mg/dL (NEGATIVE) H 04/27/18 19:02 Urine Blood Negative (NEGATIVE) 04/27/18 19: Urine Nitrate Negative (NEGATIVE) 04/27/18 19:02 Urine Bilirubin Negative (NEGATIVE) 04/27/18 19:02 Urine Urobilinogen 1.0 E.U./dL (<1 E.U./dL) H 04/27/18 19:02 Ur Leukocyte Esterase Trace John/uL (NEGATIVE) H 04/27/18 19:02 Urine RBC 0 - 2 /hpf (0-2) 04/27/18 19:02 Urine WBC 2 - 5 /hpf (0-6) 04/27/18 19:02 Ur Epithelial Cells 0 - 2 /hpf (0-5) 04/27/18 19:02 Urine Bacteria Mod (NEG) 04/27/18 19:02 - Hospital Course Hospital Course: Pt seen and examined by me. I have reviewed the note by the medical asst. The case was discussed and reviewed with the resident. I reviewed the medications and labs. Pt had dizziness and headache. This has improved. He was seen by Neurology. He will be discharged home. His CT head was not significant.
[2018-04-29 13:15] VITALS: BP 132/92; PULSE 72; TEMP 97.8
--- NOTE | 2018-04-29 15:22 | CON ---
DATE: 04/29/2018 NEUROLOGY CONSULTATION CHIEF COMPLAINT: Head pressure and dizziness. HISTORY OF PRESENT ILLNESS: A 72-year-old man with history of hypertension, hyperlipidemia, history of lumbar back surgery, inguinal hernia repair, who came to the hospital for dizziness in terms of light headedness and headache for the past 2 days. He felt like he had lot of intermittent pressure on the bilateral frontal lobes and behind the eyes and on his forehead, which made him felt lightheaded and near syncopal event, it felt like he was going to pass out. Currently no focal neurological deficits seen on examination. CAT scan of the head showed no acute intracranial abnormalities. Carotid Doppler ultrasound showed 20%-39% proximal ICA stenosis in anterior gluteal fold and vertebral arteries. Currently, his headaches is so much better and he is doing much better today. Cardiology on board. Orthostatics were negative. PAST MEDICAL HISTORY: As above. SOCIAL HISTORY: No illicit drug use, smoking or EtOH abuse at this time. He quit smoking more than 40 years ago. Occasional EtOH use. No illicit drug use. FAMILY HISTORY: Noncontributory. MEDICATIONS: Reviewed by nurses' reconciliation sheet. REVIEW OF SYSTEMS: A 14-point review of system is negative except as per the HPI. LABORATORY DATA: Sodium is 139, potassium 4.7, chloride 101, carbon dioxide 30, BUN 17, creatinine 1.1, random glucose of 114. PHYSICAL EXAMINATION: VITAL SIGNS: Temperature of 97.8, pulse rate of 72, blood pressure 132/92, respiratory rate 18, oxygen saturation 97% by room air. GENERAL: The patient is sitting up in bed, in no acute distress. HEENT: Atraumatic and normocephalic. PERRLA. Extraocular muscles intact. NECK: Supple. No JVD. No adenopathy noted. LUNGS: Clear to auscultation. No adventitious sounds. HEART: S1 and S2. Normal rate and rhythm. No murmur, rubs, or gallops. ABDOMEN: Soft, nontender, nondistended. Bowel sounds are present. EXTREMITIES: No clubbing. No cyanosis. Peripheral pulses 2+ felt bilaterally. NEUROLOGIC: The patient is alert and oriented to person, place, month, and year. Speech is fluent without any errors. Cranial nerves II through XII intact. Motor: Moves all extremities equally. No pronator drift seen. Sensory: Light touch, pinprick, proprioception, and vibration are intact. DTRs are 2+ throughout. Coordination: [id number] intact. No dysmetria noted. Gait is deferred now. IMPRESSION: His symptoms seem more like episode of tension type headache causing neuro vasovagal event. PLAN: At this time, we would recommend: 1. Antiplatelet, which is Plavix since he is ALLERGIC TO ASPIRIN, GI ulcers. 2. Adequate hydration throughout the day. 3. Medrol Dosepak for his intermittent episodic tension headache which will hope to reduce the potency of his headache. He can follow up as an outpatient. Thank you for this consult. John Pat MD
--- NOTE | 2018-04-30 09:44 | CARD ---
APPROVED REPORT Date of service: 04/29/2018 EXAM: Two-dimensional and M-mode echocardiogram with Doppler and color Doppler. Other Information Quality : AverageRhythm : INDICATION Syncope 2D DIMENSIONS Left Atrium (2D)4.0 (1.6-4.0cm)IVSd1.3 (0.7-1.1cm) LVDd4.4 (3.9-5.9cm)PWd1.3 (0.7-1.1cm) LVDs2.9 (2.5-4.0cm)FS (%) 35.4 % LVEF (%)65.0 (>50%) M-Mode DIMENSIONS Aortic Root3.60 (2.2-3.7cm)Aortic Cusp Exc.1.80 (1.5-2.0cm) Aortic Valve AoV Peak Hproxjra134.0cm/s Mitral Valve MV E Tzzdqvhd51.1cm/sMV A Hzuinrzo45.3cm/sE/A ratio0.7 TDI E/Lateral E'0.0E/Medial E'0.0 Tricuspid Valve TR Peak [id number]/sRAP [id number] Peak Gr.15mmHg [id number] LEFT VENTRICLE The left ventricle is normal size. There is mild concentric left ventricular hypertrophy. The left ventricular function is normal. The left ventricular ejection fraction is within the normal range. There is normal LV segmental wall motion. RIGHT VENTRICLE The right ventricle is normal size. ATRIA The left atrium size is normal. The right atrium size is normal. The interatrial septum is intact with no evidence for an atrial septal defect. AORTIC VALVE The aortic valve is normal in structure. MITRAL VALVE The mitral valve is normal in structure. Mitral regurgitation is trace. TRICUSPID VALVE The tricuspid valve is normal in structure. There is trace tricuspid regurgitation. PULMONIC VALVE The pulmonary valve is normal in structure. There is trace pulmonic valvular regurgitation. GREAT VESSELS The aortic root is normal in size. PERICARDIAL EFFUSION There is no pericardial effusion. <Conclusion> The left ventricle is normal size. There is mild concentric left ventricular hypertrophy. The left ventricular function is normal.
== END 2018-04-29 15:50 | disposition home or self-care (01) ==
LOC: ED 16:47 → ERH 22:36 → 2RNO 04-28
PROVIDERS: ADMIT Internal Medicine Nephrology; ATTEND Internal Medicine Nephrology
DX: G44.209 Tension-type headache, unspecified, not intractable (principal); R55 Syncope and collapse; I65.23 Occlusion and stenosis of bilateral carotid arteries; I10 Essential (primary) hypertension; E78.00 Pure hypercholesterolemia, unspecified; E78.5 Hyperlipidemia, unspecified; I45.10 Unspecified right bundle-branch block; Z87.891 Personal history of nicotine dependence; Z80.0 Family history of malignant neoplasm of digestive organs; Z82.49 Family history of ischemic heart disease and other diseases of the circulatory system; Z83.3 Family history of diabetes mellitus
CPT/HCPCS: 70450; 71045; 80053; 81001; 82550; 83615; 83735; 84484; 85025; 87086; 93005; 93306; 93880; 96374; 99285; G0378; J2765